=== PATIENT | female | born 1965 | race Caucasian/White ===

== ENCOUNTER → 2018-05-03 | Outpatient (CLI) | payer BC, OTHER ==
[~2018-05-03] MED LIST: BENADRYL
--- NOTE | 2018-05-03 15:03 | Diagnostic Imaging Report ---
EXAMINATION: CT of the lumbar spine without contrast HISTORY: Low back pain, evaluate for fractures COMPARISON: None available TECHNIQUE: Multidetector helical axial images were obtained without contrast from L1 to S1. The images were reconstructed using bone and soft tissue algorithms and were viewed in axial, sagittal, and coronal planes. FINDINGS: Alignment: Normal alignment and lordosis. Vertebral bodies: Mild acute compression fracture of the superior endplate of L2, with depression and decreased vertebral body height anteriorly by approximately 15%. There is no extension of the fracture line to the posterior cortex or posterior elements, there is no posterior retropulsion and no canal stenosis. Paraspinal muscles: Minimal paraspinal soft tissue swelling at the level of the L2 fracture. Possible cholelithiasis. Intervertebral disks: L1-L2: Normal. L2-L3: Normal. L3-L4: Minimal symmetric disc bulge without stenoses. L4-L5: Normal. L5-S1: Mild symmetric disc bulge and facet arthrosis without significant stenoses. IMPRESSION: Mild acute compression fracture of the L2 vertebral body without posterior retropulsion or canal stenosis. Note is made that acute post traumatic conus medullaris/cauda equina, vascular or ligamentous injury cannot adequately be assessed with CT. The findings were discussed with the attending physician Dr. Pina on 05/03/2018 at 2:58 PM Signed by: Dr. Evelina Jefferson M.D. on 05/03/2018 3:00 PM
== END ==
LOC: CT 13:33
PROVIDERS: ATTEND Family Medicine
DX: M54.5 Low back pain (principal)
CPT/HCPCS: 72131